=== PATIENT | female | born 1965 | race Caucasian/White ===

== ENCOUNTER 2017-12-16 10:55 | Outpatient (CLI) | payer BC | END 2017-12-16 10:56 | disposition home or self-care (01) | LOC: BICMAMMO 10:55 | PROVIDERS: ATTEND Family Medicine | DX: Z12.31 Encounter for screening mammogram for malignant neoplasm of breast (principal); R92.1 Mammographic calcification found on diagnostic imaging of breast; Z80.3 Family history of malignant neoplasm of breast | CPT/HCPCS: 77063; 77067 ==

== ENCOUNTER 2019-02-16 11:41 | Outpatient (CLI) | payer BC ==
--- NOTE | 2019-02-16 13:54 | MMO ---
Bilateral MAMMO Bilat Screen [facility]. CLINICAL HISTORY: Patient is 53 years old and is seen for screening. The patient has the following family history of breast cancer: mother, at age 72. The patient has no personal history of cancer. VIEWS: The views performed were: bilateral craniocaudal with tomosynthesis and bilateral mediolateral oblique with tomosynthesis. FILMS COMPARED: The present examination has been compared to prior imaging studies performed at 10/31/2016 and 12/16/2017. MAMMOGRAM FINDINGS: There are scattered fibroglandular densities. There are no suspicious masses, suspicious calcifications, or new areas of architectural distortion. IMPRESSION: THERE IS NO MAMMOGRAPHIC EVIDENCE OF MALIGNANCY. A ROUTINE FOLLOW-UP MAMMOGRAM IN 1 YEAR IS RECOMMENDED. THE RESULTS OF THIS EXAM WERE SENT TO THE PATIENT. ACR BI-RADS Category 1 - Negative MAMMOGRAPHY NOTE: 1. A negative mammogram report should not delay a biopsy if a dominant of clinically suspicious mass is present. 2. Approximately 10% to 15% of breast cancers are not detected by mammography. 3. Adenosis and dense breasts may obscure an underlying neoplasm.
== END 2019-02-16 11:42 | disposition home or self-care (01) ==
LOC: BICMAMMO 11:41
PROVIDERS: ATTEND Family Medicine
DX: Z12.31 Encounter for screening mammogram for malignant neoplasm of breast (principal); Z80.3 Family history of malignant neoplasm of breast
CPT/HCPCS: 77063; 77067

== ENCOUNTER 2020-03-08 15:11 | Outpatient (CLI) | payer BC ==
--- NOTE | 2020-03-08 16:52 | MMO ---
Bilateral MAMMO Bilat Screen [facility]. CLINICAL HISTORY: Patient is 55 years old and is seen for screening. The patient has the following family history of breast cancer: mother, at age 72. The patient has no personal history of cancer. VIEWS: The views performed were: bilateral craniocaudal with tomosynthesis and bilateral mediolateral oblique with tomosynthesis. FILMS COMPARED: The present examination has been compared to prior imaging studies performed at [facility] on 10/14/2015, 10/31/2016, 12/16/2017 and 02/16/2019. This study has been interpreted with the assistance of computer-aided detection. MAMMOGRAM FINDINGS: There are scattered fibroglandular densities. There are no suspicious masses, suspicious calcifications, or new areas of architectural distortion. IMPRESSION: THERE IS NO MAMMOGRAPHIC EVIDENCE OF MALIGNANCY. A ROUTINE FOLLOW-UP MAMMOGRAM IN 1 YEAR IS RECOMMENDED. THE RESULTS OF THIS EXAM WERE SENT TO THE PATIENT. ACR BI-RADS Category 1 - Negative MAMMOGRAPHY NOTE: 1. A negative mammogram report should not delay a biopsy if a dominant of clinically suspicious mass is present. 2. Approximately 10% to 15% of breast cancers are not detected by mammography. 3. Adenosis and dense breasts may obscure an underlying neoplasm. Reported by: JAYDE JUSTICE MD Electonically Signed: [id number]
== END 2020-03-08 15:12 | disposition home or self-care (01) ==
LOC: BICMAMMO 15:11
PROVIDERS: ATTEND Family Medicine
DX: Z12.31 Encounter for screening mammogram for malignant neoplasm of breast (principal); Z80.3 Family history of malignant neoplasm of breast
CPT/HCPCS: 77063; 77067

== ENCOUNTER 2021-04-24 14:56 | Outpatient (CLI) | payer BC | END 2021-04-24 14:57 | disposition home or self-care (01) | LOC: BICMAMMO 14:56 | PROVIDERS: ATTEND Family Medicine | DX: Z12.31 Encounter for screening mammogram for malignant neoplasm of breast (principal); Z80.3 Family history of malignant neoplasm of breast | CPT/HCPCS: 77063; 77067 ==

== ENCOUNTER 2021-07-11 12:32 | Outpatient (CLI) | payer BC | END 2021-07-11 12:33 | disposition home or self-care (01) | LOC: MRI 12:32 | PROVIDERS: ATTEND Internal Medicine Hematology & Oncology | DX: R51.9 Headache, unspecified (principal) | CPT/HCPCS: 70553 ==

== ENCOUNTER 2022-04-25 15:21 | Outpatient (CLI) | payer BC | END 2022-04-25 15:22 | disposition home or self-care (01) | LOC: BICMAMMO 15:21 | PROVIDERS: ATTEND Family Medicine | DX: Z12.31 Encounter for screening mammogram for malignant neoplasm of breast (principal); Z80.3 Family history of malignant neoplasm of breast | CPT/HCPCS: 77063; 77067 ==